=== PATIENT | female | born 1960 | race Caucasian/White ===

== ENCOUNTER 2019-12-13 20:07 | Inpatient (IN) | payer MEDICAID, MEDICARE ==
[~2019-12-13] VITALS: Ht 162.6 cm; Wt 41.7 kg
[2019-12-13 20:59] LABS: EOSINOPHILS % 2.1 % (0.0-5.0); HEMATOCRIT. 39.6 % (36.0-48.0); HEMOGLOBIN. 13.2 g/dL (12.0-16.0); LYMPHOCYTES % 34.2 % (20.0-50.0); MEAN CORPUSCULAR HEMOGLOBIN 31.2 pg (28.0-32.0); MEAN CORPUSCULAR VOLUME 93.8 fL (81.0-99.0); MEAN PLATELET VOLUME 8.1 fl (7.4-10.4); MONOCYTES % 8.3 % (2.0-8.0); NEUTROPHILS % 54.4 % (40.0-76.0); PLATELET 246 x1000/uL (130-400); RED BLOOD CELL COUNT 4.22 mill/uL (4.2-5.4); RED CELL DISTRIBUTION WIDTH 14.3 % (11.6-14.6)
[2019-12-13 21:02] LABS: CHLORIDE 107 mEq/L (98-107)
[2019-12-13 21:06] LABS: ETHANOL BLOOD < 10 mg/dL
[2019-12-14 08:46] LABS: CLARITY URINE CLEAR (CLEAR); COLOR URINE YELLOW (YELLOW); KETONES URINE NEGATIVE (NEGATIVE); LEUKOCYTE ESTERASE URINE NEGATIVE (NEGATIVE); NITRITE URINE NEGATIVE (NEGATIVE); OCCULT BLOOD URINE TRACE (NEGATIVE); PH URINE 7.5 (4.5-8.0); PROTEIN URINE NEGATIVE (NEGATIVE); SPECIFIC GRAVITY URINE 1.009 (1.005-1.030); UROBILINOGEN URINE 0.2 E.U./dL (0.2-1.0)
[2019-12-14 08:51] LABS: *AMPHETAMINES SCREEN URINE NEGATIVE (NEGATIVE); *BARBITURATES SCREEN URINE NEGATIVE (NEGATIVE); *BENZODIAZEPINES SCREEN URINE NEGATIVE (NEGATIVE); *COCAINE SCREEN URINE NEGATIVE (NEGATIVE); METHADONE URINE SCREEN NEGATIVE (NEGATIVE)
[2019-12-14 08:52] LABS: CANNABINOID URINE SCREEN NEGATIVE (NEGATIVE); OPIATES URINE SCREEN NEGATIVE (NEGATIVE); PHENCYCLIDINE URINE SCREEN NEGATIVE (NEGATIVE)
[2019-12-15] MEDS ORDERED: CLONIDINE 0.1MG TABLET PO PRN (16:00)
[2019-12-15] MEDS ORDERED: ONDANSETRON HCL 4MG/2ML INJ IV PRN (16:00)
[2019-12-15] MEDS ORDERED: ACETAMINOPHEN 325MG TABLET PO PRN (16:00)
[2019-12-16 04:00] VITALS: BP 144/92
[2019-12-16 05:23] VITALS: BP 144/92
[2019-12-16 08:00] VITALS: BP 147/101
[2019-12-16] MEDS: ENOXAPARIN 40MG/0.4ML SYR SUBCUT SCH (08:37)
[2019-12-16 12:00] VITALS: BP 151/86
[2019-12-16 16:06] VITALS: BP 148/57
[2019-12-16 20:00] VITALS: BP 157/95
[2019-12-17] VITALS: BP 142/87
[2019-12-17 04:00] VITALS: BP 158/81
[2019-12-17 08:00] VITALS: BP 122/83
[2019-12-17] MEDS: ENOXAPARIN 40MG/0.4ML SYR SUBCUT SCH (09:00)
[2019-12-17 12:00] VITALS: BP 129/79
[2019-12-17] MEDS: AMLODIPINE 5MG TABLET PO SCH (15:58)
[2019-12-17 15:59] VITALS: BP 113/74
[2019-12-17 20:00] VITALS: BP 121/54
[2019-12-18] VITALS: BP 126/81
[2019-12-18 04:00] VITALS: BP 115/62
[2019-12-18 08:00] VITALS: BP 159/94
[2019-12-18] MEDS: ENOXAPARIN 40MG/0.4ML SYR SUBCUT SCH ×2 (09:00→09:03)
[2019-12-18] MEDS: AMLODIPINE 5MG TABLET PO SCH (09:02)
[2019-12-18] MEDS ORDERED: HALOPERIDOL LACTATE 5MG/ML VIAL IM PRN (11:30)
[2019-12-18] MEDS: LORAZEPAM 2MG/ML CPJ IV PRN ×2 (11:33→20:03)
[2019-12-18] MEDS: RISPERIDONE 0.5MG TABLET PO SCH (11:33)
[2019-12-18 20:00] VITALS: BP 124/65
[2019-12-19] VITALS: BP 125/75
[2019-12-19 04:00] VITALS: BP 132/67
[2019-12-19] MEDS: LORAZEPAM 2MG/ML CPJ IV PRN ×2 (05:42→15:01)
[2019-12-19] MEDS: RISPERIDONE 0.5MG TABLET PO SCH (08:42)
[2019-12-19] MEDS: ENOXAPARIN 40MG/0.4ML SYR SUBCUT SCH (08:43)
[2019-12-19] MEDS: AMLODIPINE 5MG TABLET PO SCH (08:50)
[2019-12-19 20:00] VITALS: BP 111/68
[2019-12-20] VITALS: BP 114/59
[2019-12-20 04:00] VITALS: BP 114/69
[2019-12-20 08:00] VITALS: BP 112/74
[2019-12-20] MEDS: RISPERIDONE 0.5MG TABLET PO SCH (09:58)
[2019-12-20] MEDS: ENOXAPARIN 40MG/0.4ML SYR SUBCUT SCH (09:59)
[2019-12-20] MEDS: AMLODIPINE 5MG TABLET PO SCH (09:59)
[2019-12-20 12:00] VITALS: BP 112/43
[2019-12-20 16:00] VITALS: BP 137/91
[2019-12-20 20:00] VITALS: BP 117/95
[2019-12-21] VITALS: BP 120/73
[2019-12-21 04:00] VITALS: BP 117/80
[2019-12-21 08:00] VITALS: BP 147/88
[2019-12-21] MEDS: ENOXAPARIN 30MG/0.3ML SYR SUBCUT SCH (10:01)
[2019-12-21] MEDS: RISPERIDONE 1MG TABLET PO SCH (10:01)
[2019-12-21] MEDS: AMLODIPINE 5MG TABLET PO SCH (10:02)
[2019-12-21 12:00] VITALS: BP 126/54
[2019-12-21 13:07] LABS: BASOPHILS % 0.7 % (0.0-2.0); EOSINOPHILS % 1.3 % (0.0-5.0); HEMATOCRIT. 39.1 % (36.0-48.0); HEMOGLOBIN. 13.4 g/dL (12.0-16.0); LYMPHOCYTES % 25.3 % (20.0-50.0); MEAN CORPUSCULAR HEMOGLOBIN 31.6 pg (28.0-32.0); MEAN CORPUSCULAR VOLUME 92.4 fL (81.0-99.0); MEAN PLATELET VOLUME 8.3 fl (7.4-10.4); MONOCYTES % 9.6 % (2.0-8.0); NEUTROPHILS % 63.1 % (40.0-76.0); PLATELET 236 x1000/uL (130-400); RED BLOOD CELL COUNT 4.23 mill/uL (4.2-5.4); RED CELL DISTRIBUTION WIDTH 13.8 % (11.6-14.6)
[2019-12-21 13:08] LABS: PROTHROMBIN TIME 10.8 sec (9.6-11.0)
[2019-12-21 13:09] LABS: CHLORIDE 102 mEq/L (98-107)
[2019-12-21 16:00] VITALS: BP 121/76
[2019-12-21 20:00] VITALS: BP 128/75
[2019-12-22] VITALS (7 sets, daily range): BP systolic 95–140; BP diastolic 51–75
[2019-12-22] MEDS: RISPERIDONE 1MG TABLET PO SCH ×2 (08:31→11:33)
[2019-12-22] MEDS: AMLODIPINE 5MG TABLET PO SCH ×2 (08:31→11:33)
[2019-12-22] MEDS: ENOXAPARIN 30MG/0.3ML SYR SUBCUT SCH ×2 (08:31→11:33)
[2019-12-22] MEDS: LORAZEPAM 2MG/ML CPJ IV PRN (21:12)
[2019-12-23 04:17] VITALS: BP 109/61
[2019-12-23 08:00] VITALS: BP 112/64
[2019-12-23] MEDS: RISPERIDONE 1MG TABLET PO SCH (09:00)
[2019-12-23] MEDS: AMLODIPINE 5MG TABLET PO SCH (09:00)
[2019-12-23] MEDS: ENOXAPARIN 30MG/0.3ML SYR SUBCUT SCH (09:00)
[2019-12-23] MEDS: LORAZEPAM 2MG/ML CPJ IV PRN (10:11)
[2019-12-23 12:00] VITALS: BP 118/84
[2019-12-23 13:26] VITALS: BP 112/64
== END 2019-12-23 13:18 | DRG 880 ==
LOC: ER 20:07 → EDBEDREQTM 12-15 21:42 → EDBEDREQ 12-15 21:42 → EDBEDREQSVC 12-15 21:42 → ENRESERV 12-16 02:51 → 7EST 12-16 03:44 → 6EST 12-18 09:50
PROVIDERS: ADMIT Internal Medicine; ATTEND Internal Medicine
DX: F99 Mental disorder, not otherwise specified (principal); Z68.1 Body mass index [BMI] 19.9 or less, adult; F03.90 Unspecified dementia, unspecified severity, without behavioral disturbance, psychotic disturbance, mood disturbance, and anxiety; F41.9 Anxiety disorder, unspecified; J45.909 Unspecified asthma, uncomplicated; E11.9 Type 2 diabetes mellitus without complications; N28.9 Disorder of kidney and ureter, unspecified; Z20.828 Contact with and (suspected) exposure to other viral communicable diseases; Z85.819 Personal history of malignant neoplasm of unspecified site of lip, oral cavity, and pharynx; Z88.8 Allergy status to other drugs, medicaments and biological substances
CPT/HCPCS: 36415; 80048; 80053; 80307; 80320; 80329; 85025; 87635; 97162; 97165; 99284; J1650; J2060; G0480; U0003-CS